=== PATIENT | female | born 1960 | race African-American/Black ===

== ENCOUNTER → 2017-05-07 17:37 | Emergency (ER) | payer OTHER ==
[~2017-05-07 17:37] MED LIST: Cyclobenzaprine TAB* 10 MG PO ONE; Ketorolac INJ* 60 MG/2 ML VIAL IM ONE
--- NOTE | 2017-05-07 18:42 | ED ---
Neck Pain - HPI Summary HPI Summary: Patient presents with 3 weeks of neck pain that began without injury. The pain can get so intense that it gives her a headache. Her muscles ache and her neck can make a popping noise when she rotates her head. She denies upper extremity N /T or muscle wasting. No vision changes, neurological deficits. - History of Current Complaint Chief Complaint: EDBackInjuryPain Stated Complaint: NECK AND BACK PAIN Time Seen by Provider: 05/07/17 17:48 Hx Obtained From: Patient Onset/Duration Of Injury/Symptoms: Weeks - 3 Mechanism Of Injury: No Known Trauma Timing: Intermittent Onset/Duration: Gradual Onset, Started weeks ago, Still Present Severity Initially: Mild Severity Currently: Moderate Pain Intensity: 6 Character: Aching Aggravating Factors: Movement Alleviating Factors: Nothing Associated Signs & Symptoms: Positive: Headache - Allergies/Home Medications Allergies/Adverse Reactions: Allergies Allergy/AdvReac Type Severity Reaction Status Date / Time No Known Allergies Allergy Verified 05/13/16 09:14 PMH/Surg Hx/FS Hx/Imm Hx Endocrine/Hematology History: Reports: Hx Diabetes Denies: Hx Thyroid Disease Cardiovascular History: Reports: Hx Hypertension Respiratory History: Denies: Hx Asthma, Hx Chronic Obstructive Pulmonary Disease (COPD) GI History: Denies: Hx Cirrhosis, Hx Ulcer - Cancer History Hx Chemotherapy: No Hx Radiation Therapy: No - Surgical History Surgery Procedure, Year, and Place: hysterectomy 15-20 yrs ago Infectious Disease History: No Infectious Disease History: Denies: Hx Hepatitis, Hx Human Immunodeficiency Virus (HIV), Traveled Outside the [place] in Last 30 Days - Family History Known Family History: Positive: Hypertension - Social History Occupation: Employed Full-time Lives: With Family Alcohol Use: Rare Substance Use Type: Reports: None Smoking Status (MU): Light Every Day Tobacco Smoker Cessation Counseling: Patient Advised to Stop Review of Systems Negative: Fever, Chills Negative: Photophobia, Blurred Vision Positive: Myalgia. Negative: Decreased ROM, Edema Negative: Weakness, Paresthesia, Numbness All Other Systems Reviewed And Are Negative: Yes Physical Exam Triage Information Reviewed: Yes Vital Signs On Initial Exam: Initial Vitals Temp Pulse Resp BP Pulse Ox 98.2 F 88 20 138/97 97 05/07/17 17:40 05/07/17 17:40 05/07/17 17:40 05/07/17 17:40 05/07/17 17:40 Vital Signs Reviewed: Yes Appearance: Positive: Well-Appearing, No Pain Distress, Well-Nourished Skin: Positive: Warm, Skin Color Reflects Adequate Perfusion, Dry, Soft Head/Face: Positive: Normal Head/Face Inspection Eyes: Positive: EOMI, ARIEL, Conjunctiva Clear ENT: Positive: Hearing grossly normal Neck: Positive: Supple, No Lymphadenopathy, Tenderness @ - bilateral trapezius and cervical spine Respiratory/Lung Sounds: Positive: Clear to Auscultation, Breath Sounds Present Cardiovascular: Positive: RRR Musculoskeletal: Positive: Strength/ROM Intact Neurological: Positive: Sensory/Motor Intact, Alert, Oriented to Person Place, Time, NV Bundle Intact Distally, Normal Gait Psychiatric: Positive: Affect/Mood Appropriate AVPU Assessment: Alert Diagnostics - Vital Signs Vital Signs Temp Pulse Resp BP Pulse Ox 05/07/17 17:42 98.2 F 88 20 138/97 96 05/07/17 17:40 98.2 F 88 20 138/97 97 - Laboratory Lab Statement: Any lab studies that have been ordered have been reviewed, and results considered in the medical decision making process. - Radiology No standard instances Xray Interpretation: No Acute Changes Radiology Interpretation Completed By: Radiologist Re-Evaluation - Re-Evaluation First Eval Re-Evaluation Time: 19:05 Change: Improved - pain has decreased Neck Course/Dx - Diagnoses Differential Dx/HQI/PQRI: Positive: Arthritis, Cervical Fracture, Sprain, Strain , Trauma Provider Diagnoses: Neck pain Discharge - Discharge Plan Condition: Stable Disposition: HOME Patient Education Materials: Neck Pain (ED) Forms: *Work Release Referrals: Dede Brush MD [Primary Care Provider] - Additional Instructions: Please begin taking ibuprofen 600mg three times daily with meals tomorrow at dinner for the next 3-5 days. Use the muscle relaxer and apply heat to her neck to decrease discomfort as well. Follow-up with your primary care provider if you symptoms do not begin to improve in the next 5-7 days. Return to the emergency department if symptoms worsen.
--- NOTE | 2017-05-07 19:05 | RAD ---
Indication: Pain in the inferior posterior cervical spine region for 3 weeks intermittent. No preceding injury. Comparison: No relevant prior exams available on the [facility] PACS for comparison. Technique: AP, open-mouth odontoid, lateral, and oblique views cervical spine. Report: Normal alignment from the craniocervical junction through the cervicothoracic junction. Negative for fracture. Vertebral endplate osteophytosis most prominent at C5-C6 and C6-C7 without significant disc space narrowing. Uncinate process spurring results in moderate osseous foraminal stenosis at C5-C6 on the RIGHT and moderate C5-C6 and severe C6-C7 osseous foraminal stenosis on the LEFT . Unremarkable prevertebral soft tissue contours. IMPRESSION: Degenerative spondylosis most prominent at C5-C6 and C6-C7. Multilevel foraminal stenosis secondary to uncinate process spurring as described.
[2017-05-07 19:08] VITALS: BP 135/94
== END | disposition home or self-care (01) ==
LOC: ED 17:37
DX: M54.2 Cervicalgia (principal); R51 Headache; F17.210 Nicotine dependence, cigarettes, uncomplicated
CPT/HCPCS: 72050; 96372; 99282; A9270-GY; J1885

== ENCOUNTER 2017-11-10 14:38 | Emergency (ER) | payer OTHER ==
[2017-11-10] MEDS ORDERED: Amoxicillin PO (*) 500 MG CAP PO ONE (15:56)
[2017-11-10] MEDS ORDERED: Ibuprofen TAB* 600 MG PO ONE (15:56)
[2017-11-10 16:11] VITALS: BP 153/98
--- NOTE | 2017-11-11 09:26 | ED ---
Throat Pain/Nasal Congestion - HPI Summary HPI Summary: 57 female presents to ED with complaints of upper right dental pain that began a few days ago and has worsened since. Has been taking ibuprofen/tylenol without relief last took medication yesterday, nothing today. Patient states she thinks she has an infection. Chewing makes it worse. Denies drainage or palpable abscess. No trouble swallowing or breathing. No other complaints. PMHx includes HTN and DM. Does have dentures however has one #1 tooth left on upper mouth. Denies fever/chills. - History of Current Complaint Chief Complaint: EDDentalPain Time Seen by Provider: 11/10/17 15:21 Hx Obtained From: Patient Onset/Duration: Sudden Onset, Lasting Days, Still Present, Worse Since Severity: Moderate Cough: None - Allergies/Home Medications Allergies/Adverse Reactions: Allergies Allergy/AdvReac Type Severity Reaction Status Date / Time No Known Allergies Allergy Verified 05/13/16 09:14 PMH/Surg Hx/FS Hx/Imm Hx Endocrine/Hematology History: Reports: Hx Diabetes Denies: Hx Thyroid Disease Cardiovascular History: Reports: Hx Hypertension Respiratory History: Denies: Hx Asthma, Hx Chronic Obstructive Pulmonary Disease (COPD) GI History: Denies: Hx Cirrhosis, Hx Ulcer - Cancer History Hx Chemotherapy: No Hx Radiation Therapy: No - Surgical History Surgery Procedure, Year, and Place: hysterectomy 15-20 yrs ago - Immunization History Immunizations Up to Date: Yes Infectious Disease History: No Infectious Disease History: Denies: Hx Hepatitis, Hx Human Immunodeficiency Virus (HIV), Traveled Outside the [place] in Last 30 Days - Family History Known Family History: Positive: Hypertension - Social History Alcohol Use: Rare Substance Use Type: Reports: None Smoking Status (MU): Light Every Day Tobacco Smoker Review of Systems Constitutional: Negative Positive: Dental Pain Cardiovascular: Negative Respiratory: Negative Neurological: Negative All Other Systems Reviewed And Are Negative: Yes Physical Exam Triage Information Reviewed: Yes Vital Signs On Initial Exam: Initial Vitals Temp Pulse Resp BP Pulse Ox 98.2 F 88 18 168/98 98 11/10/17 14:47 11/10/17 14:47 11/10/17 14:47 11/10/17 14:47 11/10/17 14:47 Vital Signs Reviewed: Yes Appearance: Positive: Well-Appearing, Well-Nourished, Pain Distress - moderate Skin: Positive: Warm, Skin Color Reflects Adequate Perfusion, Dry. Negative: Cold, Numb, Cyanosis @, Erythema @ Head/Face: Positive: Normal Head/Face Inspection Eyes: Positive: EOMI, ARIEL, Conjunctiva Clear ENT: Positive: Hearing grossly normal, Pharynx normal, Uvula midline. Negative : Pharyngeal erythema, Nasal congestion, Nasal drainage, Tonsillar swelling, Tonsillar exudate, Trismus, Muffled voice Dental: Positive: Gross Decay/Caries @ - dentures in, tender on #1 however no sign of abscess or infection noteable, Dental Fracture @. Negative: Percussion Tenderness @, Abscess @ - no appreciated, Cellulitis @ Neck: Positive: Supple, Nontender, No Lymphadenopathy Respiratory/Lung Sounds: Positive: Clear to Auscultation, Breath Sounds Present. Negative: Rales, Rhonchi, Wheezes Cardiovascular: Positive: Normal, RRR, Pulses are Symmetrical in both Upper and Lower Extremities. Negative: Murmur, Rub Musculoskeletal: Positive: Normal, Strength/ROM Intact Neurological: Positive: Normal, Sensory/Motor Intact, Alert, Oriented to Person Place, Time - Haresh Coma Scale Coma Scale Total: 15 Diagnostics - Vital Signs Vital Signs Temp Pulse Resp BP Pulse Ox 11/10/17 16:08 97.7 F 92 18 153/98 97 11/10/17 14:47 98.2 F 88 18 168/98 98 - Laboratory Lab Statement: Any lab studies that have been ordered have been reviewed, and results considered in the medical decision making process. EENT Course/Dx - Course Course Of Treatment: given 800mg ibuprofen while in ED. refrained from toradol due to HTN and DM and no kidney function on file. given norco to take at home for breakthrough pain. started on amoxicillin. salt water swishes and good oral hygeine. follow up with dentist. no other concerns at this time. normal vitals. afebrile. - Differential Diagnoses Differential Diagnoses: Dental Abscess, Dental Caries, Fractured Tooth - Diagnoses Provider Diagnoses: Toothache, Dental abscess Discharge - Discharge Plan Condition: Good Disposition: HOME Prescriptions: Amoxicillin PO (*) [Amoxicillin 500 MG CAP*] 500 mg PO Q12H #20 cap HYDROcodone/ACETAMIN 5-325 MG* [[place] 5-325 TAB*] 1 tab PO Q6H PRN #10 tab MDD 2 PRN Reason: Pain Patient Education Materials: Dental Abscess (ED), Toothache (ED) Referrals: Dede Brush MD [Primary Care Provider] - Additional Instructions: Take prescribed medication as directed for pain and infection. Apply cool compresses. Keep good oral hygiene, salt water swishes. Apply topical anesthetic like orajel sold OTC. Any new or worsening symptoms please return. Continue ibuprofen as needed for pain and inflammation. Make an appointment with dentist for this week.
== END 2017-11-10 16:17 | disposition home or self-care (01) ==
LOC: ED 14:38
DX: K08.89 Other specified disorders of teeth and supporting structures (principal); K04.7 Periapical abscess without sinus; F17.210 Nicotine dependence, cigarettes, uncomplicated; I10 Essential (primary) hypertension; E11.9 Type 2 diabetes mellitus without complications
CPT/HCPCS: 99282; A9270-GY

== ENCOUNTER 2018-02-26 18:35 | Emergency (ER) | payer OTHER ==
[2018-02-26 23:03] LABS: ABS Basophils 0.1 10^3/ul (0-0.2); ABS Eosinophils 0.3 10^3/ul (0-0.6); ABS Lymphocytes 3.6 10^3/ul (1.0-4.8); ABS Monocytes 0.4 10^3/ul (0-0.8); ABS Neutrophils 2.8 10^3/ul (1.5-7.7); ABS Nucleated RBC 0 10^3/ul; Eosinophil % 4.4 % (0-6); Hematocrit 39 % (35-47); Hemoglobin 12.9 g/dl (12.0-16.0); Lymphocyte % 50.2 % (25-47); Mean Corpuscular HGB Conc 33 g/dl (31-36); Mean Corpuscular Hemoglobin 28 pg (27-31); Mean Corpuscular Volume 85 fL (80-97); Mean Platelet Volume 8.9 um3 (7.4-10.4); Nucleated Red Blood Cells % 0.1; Platelet Count 172 10^3/ul (150-450); Red Blood Count 4.58 10^6/ul (4.0-5.4); Red Cell Distribution Width 15 % (10.5-15); White Blood Count 7.3 10^3/ul (3.5-10.8)
[2018-02-26 23:10] LABS: INR 1.03 (0.77-1.02)
[2018-02-26 23:20] LABS: EGFR Non-African American 88.6 (>60)
--- NOTE | 2018-02-27 00:06 | ED ---
Bradnon Carter Thomas, scribed for Seth Silva MD on 02/26/18 at 2259 . Palpitations / Dysrhythmia - HPI Summary HPI Summary: The patient is a 57 year old female who complains of episodes of fast palpitations that began this morning. She describes a sensation of double beats . She feels weak during these episodes. She has a history of similar palpitations. The patient denies dizziness, chest pain, nausea, and vomiting. She drinks one cup of coffee in the morning. - History of Current Complaint Chief Complaint: EDDysrhythmPalp Time Seen by Provider: 02/26/18 21:54 Hx Obtained From: Patient Onset/Duration: Lasting Hours, Still Present Timing: Intermittent Episodes Lasting: Severity Initially: Moderate Severity Currently: None Character: Fast Aggravating: Nothing Alleviating: Nothing Associated Signs & Symptoms: Negative - dizziness, chest pain, nausea, vomiting , Lightheadedness - Allergy/Home Medications Allergies/Adverse Reactions: Allergies Allergy/AdvReac Type Severity Reaction Status Date / Time No Known Allergies Allergy Verified 05/13/16 09:14 Home Medications: Home Medications Aspirin EC TAB* [Ecotrin EC Low Dose 81 MG*] 81 mg PO DAILY 02/26/18 [History Confirmed 02/26/18] Losartan TAB* [Cozaar TAB*] 50 mg PO DAILY 02/26/18 [History Confirmed 02/26/18] Pantoprazole TAB (NF) [Protonix TAB (NF)] 40 mg PO BID 02/26/18 [History Confirmed 02/26/18] Ranitidine TAB (NF) [Zantac TAB (NF)] 300 mg PO BEDTIME 02/26/18 [History Confirmed 02/26/18] Simvastatin TAB(NF) [Zocor(NF)] 20 mg PO BEDTIME 02/26/18 [History Confirmed ] Sitagliptin (NF) [Januvia (NF)] 50 mg PO DAILY 02/26/18 [History Confirmed 02/26] PMH/Surg Hx/FS Hx/Imm Hx Endocrine/Hematology History: Reports: Hx Diabetes Denies: Hx Thyroid Disease Cardiovascular History: Reports: Hx Hypertension Respiratory History: Denies: Hx Asthma, Hx Chronic Obstructive Pulmonary Disease (COPD) GI History: Denies: Hx Cirrhosis, Hx Ulcer - Cancer History Hx Chemotherapy: No Hx Radiation Therapy: No - Surgical History Surgery Procedure, Year, and Place: hysterectomy 15-20 yrs ago Infectious Disease History: No Infectious Disease History: Denies: Hx Hepatitis, Hx Human Immunodeficiency Virus (HIV), Traveled Outside the [place] in Last 30 Days - Family History Known Family History: Positive: Hypertension - Social History Alcohol Use: Rare Substance Use Type: Reports: None Smoking Status (MU): Light Every Day Tobacco Smoker Review of Systems Positive: Other - Weakness during episodes. Negative: Fever Positive: Palpitations. Negative: Chest Pain Negative: Vomiting, Nausea Neurological: Negative - dizziness All Other Systems Reviewed And Are Negative: Yes Physical Exam - Summary Physical Exam Summary: VITAL SIGNS: Reviewed. GENERAL: Patient is a well-developed and nourished female who is lying comfortable in the stretcher. Patient is not in any acute respiratory distress. HEAD AND FACE: No signs of trauma. No ecchymosis, hematomas or skull depressions. No sinus tenderness. EYES: PERRLA, EOMI x 2, No injected conjunctiva, no nystagmus. EARS: Hearing grossly intact. Ear canals and tympanic membranes are within normal limits. MOUTH: Oropharynx within normal limits. NECK: Supple, trachea is midline, no adenopathy, no JVD, no carotid bruit, no c- spine tenderness, neck with full ROM. CHEST: Symmetric, no tenderness at palpation LUNGS: Clear to auscultation bilaterally. No wheezing or crackles. CVS: Regular rate and rhythm, S1 and S2 present, no murmurs or gallops appreciated. ABDOMEN: Soft, non-tender. No signs of distention. No rebound no guarding, and no masses palpated. Bowel sounds are normal. EXTREMITIES: FROM in all major joints, no edema, no cyanosis or clubbing. NEURO: Alert and oriented x 3. No acute neurological deficits. Speech is normal and follows commands. SKIN: Dry and warm Triage Information Reviewed: Yes Vital Signs On Initial Exam: Initial Vitals Temp Pulse Resp BP Pulse Ox 98.6 F 83 20 170/113 99 02/26/18 18:36 02/26/18 18:36 02/26/18 18:36 02/26/18 18:36 02/26/18 18:36 Vital Signs Reviewed: Yes Diagnostics - Vital Signs Vital Signs Temp Pulse Resp BP Pulse Ox 02/26/18 22:36 85 16 140/92 97 02/26/18 22:06 77 16 128/86 97 02/26/18 20:38 97.7 F 70 20 130/91 100 02/26/18 18:36 98.6 F 83 20 170/113 99 - Laboratory Result Diagrams: 02/26/18 22:53 02/26/18 22:53 Lab Statement: Any lab studies that have been ordered have been reviewed, and results considered in the medical decision making process. - EKG 19:19 Cardiac Rate: NL EKG Interpretation: Sinus arrythmia at 71 BPm. Normal axis, normal intervals, no ischemic chnge Course/Dx - Course Assessment/Plan: The patient is a 57 year old female who complains of episodes of fast palpitations that began this morning. She describes a sensation of double beats. Bloodwork and EKG were obtained. The patient will be discharged home to follow up with primary care. She is diagnosed with palpitations. - Diagnoses Provider Diagnoses: Palpitations Discharge - Sign-Out/Discharge Documenting (check all that apply): Discharge - Discharge Plan Condition: Stable Disposition: HOME Patient Education Materials: Heart Palpitations (ED) Referrals: Dede Brush MD [Primary Care Provider] - 2 Days Additional Instructions: Follow up with your primary care physician in one to two days. Return to the emergency department for any new or worsening symptoms. The documentation as recorded by the Brandon okeefe Thomas accurately reflects the service I personally performed and the decisions made by me, Seth Silva MD.
[2018-02-27 00:29] VITALS: BP 128/85
== END 2018-02-27 00:29 | disposition home or self-care (01) ==
LOC: ED 18:35
DX: R00.2 Palpitations (principal); E11.9 Type 2 diabetes mellitus without complications; I10 Essential (primary) hypertension; F17.210 Nicotine dependence, cigarettes, uncomplicated
CPT/HCPCS: 36415; 80053; 83735; 84443; 84484; 85025; 85610; 85730; 93005; 99283

== ENCOUNTER 2019-07-20 12:41 | Emergency (ER) | payer OTHER ==
[2019-07-20 13:05] VITALS: BP 146/95
--- NOTE | 2019-07-20 14:10 | ED ---
Lower Extremity - HPI Summary HPI Summary: This patient is a 59 year old female presenting to [facility] with a chief complaint of right foot pain since this morning. She denies any recent injury to the foot. She took 200 mg ibuprofen this morning to no relief. She states this has happened before and has been a chronic problem. She reports swelling in the foot as well. She states she has an appointment with a [employer] [facility] developer set up already. She has had previous surgeries on this foot. Pt denies any fever, chills, erythema of eyes, sore throat, CP, SOB, cough, abdominal pain, N/V, dysuria, hematuria, myalgia, rash, or dizziness. - History of Current Complaint Chief Complaint: EDExtremityLower Stated Complaint: RT FOOT PAIN PER PT Time Seen by Provider: 07/20/19 13:55 Hx Obtained From: Patient Pain Intensity: 5 - Allergies/Home Medications Allergies/Adverse Reactions: Allergies Allergy/AdvReac Type Severity Reaction Status Date / Time metformin Allergy Abdominal Verified 10/23/18 14:59 Pain PMH/Surg Hx/FS Hx/Imm Hx Endocrine/Hematology History: Reports: Hx Diabetes Denies: Hx Thyroid Disease Cardiovascular History: Reports: Hx Hypertension Respiratory History: Denies: Hx Asthma, Hx Chronic Obstructive Pulmonary Disease (COPD) GI History: Denies: Hx Cirrhosis, Hx Ulcer - Cancer History Hx Chemotherapy: No Hx Radiation Therapy: No - Surgical History Surgery Procedure, Year, and Place: hysterectomy 15-20 yrs ago Infectious Disease History: No Infectious Disease History: Denies: Hx Hepatitis, Hx Human Immunodeficiency Virus (HIV), Traveled Outside the [place] in Last 30 Days - Family History Known Family History: Positive: Hypertension - Social History Alcohol Use: Occasionally Substance Use Type: Reports: None Smoking Status (MU): Light Every Day Tobacco Smoker Review of Systems Negative: Fever, Chills Negative: Erythema Negative: Sore Throat Negative: Chest Pain Negative: Shortness Of Breath, Cough Negative: Abdominal Pain, Vomiting, Nausea Negative: dysuria, hematuria Positive: Edema, Other - Pain . Negative: Myalgia Negative: Rash All Other Systems Reviewed And Are Negative: Yes Physical Exam - Summary Physical Exam Summary: Constitutional: Well-developed, Well-nourished, Alert. (-) Distressed Skin: Warm, Dry HENT: Normocephalic; Atraumatic Eyes: Conjunctiva normal Neck: Musculoskeletal ROM normal neck. (-) JVD, (-) Stridor, (-) Tracheal deviation Cardio: Rhythm regular, rate normal, Heart sounds normal; Intact distal pulses; The pedal pulses are 2+ and symmetric. Radial pulses are 2+ and symmetric. (-) Murmur Pulmonary/Chest wall: Effort normal. (-) Respiratory distress, (-) Wheezes, (-) Rales Abd: Soft, (-) tenderness, (-) Distension, (-) Guarding, (-) Rebound Musculoskeletal: (-) Edema. No tenderness, swelling, Lymph: (-) Cervical adenopathy Neuro: Alert, Oriented x3 Psych: Mood and affect Normal Triage Information Reviewed: Yes Vital Signs On Initial Exam: Initial Vitals Temp Pulse Resp BP Pulse Ox 98.0 F 106 18 146/95 97 07/20/19 13:02 07/20/19 13:02 07/20/19 13:02 07/20/19 13:02 07/20/19 13:02 Vital Signs Reviewed: Yes Diagnostics - Vital Signs Vital Signs Temp Pulse Resp BP Pulse Ox 07/20/19 13:02 98.0 F 106 18 146/95 97 - Laboratory Lab Statement: Any lab studies that have been ordered have been reviewed, and results considered in the medical decision making process. Lower Extremity Course/Dx - Course Course Of Treatment: This patient is a 59 year old female presenting to [facility] with a chief complaint of right foot pain since this morning. I do not suspect a fracture. There has been no trauma. I do not expect septic joint or compartment syndrome. Due to the patient's extensive surgical history on the foot, the patient will be referred to orthopedics and podiatry for follow up. The patient was given medication to relieve her pain. A plan for discharge was discussed with the patient and she was agreeable with this plan. - Diagnoses Provider Diagnoses: Chronic foot pain, Acute foot pain Discharge ED - Sign-Out/Discharge Documenting (check all that apply): Patient Departure - Discharge Patient Received Moderate/Deep Sedation with Procedure: No - Discharge Plan Condition: Stable Disposition: HOME Prescriptions: traMADol TAB* [Ultram*] 50 mg PO Q6HR PRN #10 tab MDD 4 PRN Reason: Pain - Severe Patient Education Materials: Arthralgia (ED) Forms: *Work Release Referrals: Jolene Galdamez DPM [Doctor of Podiatric Medicine] - Kvng Antoine MD [Medical Doctor] - Additional Instructions: Follow up with Orthopedics and Podiatry. Return to ED with new or worsening symptoms. - Attestation Statements Document Initiated by Scribe: Yes Documenting Scribe: Ghulam Fajardo Provider For Whom Scribe is Documenting (Include Credential): Jarad Cevallos MD Scribe Attestation: I, Ghulam Fajardo, scribed for Jarad Cevallos MD on 07/20/19 at 1417. Status of Scribe Document: Ready
== END 2019-07-20 14:25 | disposition home or self-care (01) ==
LOC: ED 12:41
DX: G89.29 Other chronic pain (principal); M79.671 Pain in right foot; E11.9 Type 2 diabetes mellitus without complications; I10 Essential (primary) hypertension; F17.210 Nicotine dependence, cigarettes, uncomplicated; R60.9 Edema, unspecified
CPT/HCPCS: 99282

== ENCOUNTER 2019-08-11 20:33 | Emergency (ER) | payer OTHER ==
[2019-08-11 20:50] VITALS: BP 135/80
--- NOTE | 2019-08-11 21:01 | UC ---
Upper Extremity HPI - HPI Summary HPI Summary: 59 yo woman, stumbled on a rock and fell on outstretched hands this afternoon, with persistent pain and mild swelling. Has taken ibuprofen 800mg without relief of pain. No ice applied. - History of Current Complaint Chief Complaint: UCUpperExtremity Stated Complaint: RT ARM INJURY Time Seen by Provider: 08/11/19 20:54 Hx Obtained From: Patient Onset/Duration: Sudden Onset, Lasting Hours Severity Initially: Moderate Severity Currently: Moderate Pain Intensity: 10 Location Of Pain: Is Discrete @ - right wrist. Character: Aching, Throbbing Aggravating Factor(s): Movement Alleviating Factor(s): Nothing, OTC Meds - took ibuprofen 800mg Associated Signs And Symptoms: Positive: Swelling Related History: Dominant Hand Right - Risk Factors Non-Orthopedic Risk Factor: Negative DVT Risk Factors: Negative - Allergies/Home Medications Allergies/Adverse Reactions: Allergies Allergy/AdvReac Type Severity Reaction Status Date / Time metformin Allergy Abdominal Verified 08/11/19 20:50 Pain PMH/Surg Hx/FS Hx/Imm Hx Endocrine History: Diabetes Cardiovascular History: Hypertension GI/ History: Gastroesophageal Reflux - Surgical History Surgical History: Yes Surgery Procedure, Year, and Place: hysterectomy 15-20 yrs ago - Family History Known Family History: Positive: Hypertension, Non-Contributory - Social History 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 [employer] 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 Alcohol Use: Occasionally Substance Use Type: None Smoking Status (MU): Light Every Day Tobacco Smoker Review of Systems All Other Systems Reviewed And Are Negative: Yes Constitutional: Positive: Negative Musculoskeletal: Positive: Arthralgia Neurological: Positive: Negative Is Patient Immunocompromised?: No Physical Exam Triage Information Reviewed: Yes Appearance: Well-Appearing, Pain Distress - moderate Vital Signs: Initial Vital Signs Temp 98.2 F 08/11/19 20:45 Pulse 88 08/11/19 20:45 Resp 16 08/11/19 20:45 BP 135/80 08/11/19 20:45 Pulse Ox 100 08/11/19 20:45 ENT: Positive: Normal ENT inspection Respiratory: Positive: Lungs clear, Normal breath sounds Cardiovascular: Positive: RRR, No Murmur Musculoskeletal: Positive: ROM Limited @ - right wrist with mild swelling, tenderness across the dorsum of the wrist, with flexion and extension moderately restricted, + pain with movement. 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 - Differential Dx/Diagnosis Differential Diagnosis/HQI/PQRI: Contusion, Strain, Sprain Provider Diagnosis: Strain of wrist, right Discharge ED - Sign-Out/Discharge Documenting (check all that apply): Patient Departure All imaging exams completed and their final reports reviewed: No - Discharge Plan Condition: Stable Disposition: HOME Patient Education Materials: Wrist Sprain (ED) Forms: *Work Release Referrals: Dede Brush MD [Primary Care Provider] - Additional Instructions: Use the splint for support of the wrist while you heal. The radiologist will review the xrays in the morning and you will be called if there is a change in the reading from my reading. Off work for 2 days; follow up with Dr. Brush if you are unable to return to work. Continue to apply ice and use acetaminophen 650mg up to 4 times per day. - Billing Disposition and Condition Condition: STABLE Disposition: Home
[2019-08-11] MEDS ORDERED: Acetaminophen TAB* 325 MG PO ONE (21:29)
== END 2019-08-11 21:50 | disposition home or self-care (01) ==
LOC: UCEAST 20:33
DX: S66.811A Strain of other specified muscles, fascia and tendons at wrist and hand level, right hand, initial encounter (principal); I10 Essential (primary) hypertension; E11.9 Type 2 diabetes mellitus without complications; F17.290 Nicotine dependence, other tobacco product, uncomplicated; Z88.8 Allergy status to other drugs, medicaments and biological substances; W19.XXXA Unspecified fall, initial encounter; Y92.9 Unspecified place or not applicable
CPT/HCPCS: 99212; A9270-GY; G0463